=== PATIENT | male | born 1960 | race Caucasian/White ===

== ENCOUNTER 2021-05-12 17:16 | Inpatient (IN) | payer OTHER ==
[~2021-05-12] VITALS: Ht 188 cm; Wt 104.3 kg
[2021-05-12 17:22] VITALS: BP 146/80
[2021-05-12] MEDS ORDERED: NOHOMEMEDICATIONS (17:29)
[2021-05-12 18:00] LABS: URINE BLOOD 1+ (Negative); URINE CLARITY CLEAR; URINE COLOR YELLOW; URINE GLUCOSE-RANDOM NEGATIVE (Negative); URINE KETONES 2+ (Negative); URINE LEUKOCYTES-REFLEX NEGATIVE (Negative); URINE NITRITE-REFLEX NEGATIVE (Negative); URINE PROTEIN 3+ (Negative); URINE SPECIFIC GRAVITY 1.025 (1.005-1.030)
[2021-05-12 18:12] LABS: ABSOLUTE MONOCYTES 0.5 thou/uL (0.0-1.2); ABSOLUTE NEUTROPHILS 5.6 thou/uL (1.6-8.1); BASOPHILS 0.2 %; HEMATOCRIT 42.4 % (42.0-52.0); LYMPHOCYTES 13.6 %; MCH 32.8 pg (26.0-34.0); MCHC 35.4 g/dL (28.0-37.0); MCV 92.7 fL (80.0-100.0); MONOCYTES 6.6 %; MPV 7.5 fl. (7.2-11.1); NUCLEATED RBCS 0 /100WBC; PLATELET COUNT* 246 thou/uL (150-400); POLYS 79.6 %; RBC 4.58 mil/uL (4.50-6.00); WBC 7.1 thou/uL (4.0-11.0)
[2021-05-12 18:22] LABS: CALCIUM 7.8 mg/dL (8.5-10.1); CREATININE 0.9 mg/dL (0.6-1.3); POTASSIUM 3.6 mmol/L (3.5-5.1)
[2021-05-12 18:27] LABS: URINE BILIRUBIN 1+ (Negative)
[2021-05-12 18:28] LABS: ICTOTEST (BILI CONFIRMATORY) Negative (Negative)
[2021-05-12 18:35] LABS: ALBUMIN 2.9 g/dL (3.4-5.0); MAGNESIUM 1.9 mg/dL (1.8-2.4); TOTAL BILIRUBIN 1.4 mg/dL (<0.1-1.0); TOTAL PROTEIN 6.3 g/dL (6.4-8.2)
[2021-05-12 18:36] LABS: MUCUS 4-6 Moderate strn/LPF (None Seen); SQUAMOUS 0-3 Few /LPF (0-3)
[2021-05-12 18:38] LABS: CASTS None Seen /LPF (None Seen); CRYSTALS None Seen /LPF (None Seen); URINE RBC 0-2 Rare /HPF (0-2); URINE WBC-REFLEX >25 Many /HPF (0-5)
[2021-05-12 18:39] LABS: INFLUENZA A ANTIGEN Negative (Negative); INFLUENZA B ANTIGEN Negative (Negative)
[2021-05-12 20:34] VITALS: BP 95/76
[2021-05-12 21:27] VITALS: BP 128/71
--- NOTE | 2021-05-13 00:29 | NUR ---
ASSUMED CARE OF PT FROM THE ER AT 2124. PT IS ALERT AND ORIENTED. VSS. PERRLA. PT IS IN SINUS RYTHM ON THE TELEMETRY. PT IS RESTING COMFORTABLY IN BED. RESPIRATIONS ARE EVEN AND NONLABORED. WILL CONTINUE TO MONITOR PT.
[2021-05-13 02:23] VITALS: BP 112/73
[2021-05-13 05:26] VITALS: BP 108/74
[2021-05-13 08:00] VITALS: BP 111/70
--- NOTE | 2021-05-13 11:39 | EKG ---
[place] [address] ELECTROCARDIOGRAM REPORT Name: YOSELIN VIVAS Room: [address] IN [facility]#: [id number] Admission: 05/12/21 Attend Phys: David Cheatham Discharge: Date of : 58 Date of Service: 05/12/21 1745 Report #: [id number] THIS REPORT FOR: //name// [facility] ED Test Date: 2021-05-12 Test Time: 17:45:23 Pat Name: YOSELIN VIVAS Department: Room: [facility] Gender: M Property Maintenance Supervisor: ABI : 1960 Requested By: Shantanu Juárez Order Number: [id number] MD: Abel Martínez Measurements Intervals [place] Rate: 86 P: 33 DE: 123 QRS: 63 QRSD: 99 T: 25 QT: 361 QTc: 432 Interpretive Statements Sinus rhythm No previous ECG available for comparison Electronically Signed On 05-13-2021 11:39:40 CDT by Abel Martínez [email or web address] <ELECTRONICALLY SIGNED> By: Abel Martínez MD, [facility] 05/13/21 1139 1745 1745 Abel Martínez MD, [facility] /EPI
[2021-05-13 12:00] VITALS: BP 124/74
[2021-05-13 16:00] VITALS: BP 130/79
--- NOTE | 2021-05-13 16:22 | NUR ---
CM ASSESSMENT: PT COVID POSITIVE AND CURRENTLY UNDER ENHANCED PRECAUTIONS. PT A&O, NORMALLY INDEPENDENT WITH ADL'S, ACTIVE AND WORKS OUTSIDE THE HOME. PT RESIDES AT HOME WITH SPOUSE. PT USES 0 DME. PT HAS 0 HX OF HH OR SNF. CM WILL REMAIN AVAILABLE TO ASSIST AND FOLLOW NEEDED. PT NOT CURRENTLY ON ANY OXYGEN. CM D/C PLANNING NEEDS TBD AT THIS TIME. CM WILL REMAIN AVAILABLE TO ASSIST AND FOLLOW NEEDED.
--- NOTE | 2021-05-13 16:25 | NUR ---
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 REMAINS ON ROOM AIR 02 SAT IN LOW 90'S. NO COMPLAINTS OF PAIN, DIZZINESS OR INCREASE SOA TO NURSING. WILL CONTINUE WITH PLAN OF CARE.
[2021-05-13 20:00] VITALS: BP 126/77
--- NOTE | 2021-05-13 20:00 | NUR ---
RECEIVED REPORT AND ASSUMED CARE OF PT, ASSESSMENT COMPLETED. PT RESTING IN BED. DENIES SOA OR WEAKNESS. O2 SAT 91%, NO COUGH NOTED. TELEMETRY ON BUT WILL BE REMOVED ORDERED MED/SURG, SHOWS NSR. WILL CONT TO MONITOR AND ASSIST NEEDED.
[2021-05-14 04:00] VITALS: BP 141/73
[2021-05-14 04:27] LABS: HEMATOCRIT 39.8 % (42.0-52.0); HEMOGLOBIN 14.2 gm/dL (14.0-18.0); MCH 32.8 pg (26.0-34.0); MCHC 35.8 g/dL (28.0-37.0); MCV 91.7 fL (80.0-100.0); MPV 7.9 fl. (7.2-11.1); NUCLEATED RBCS 0 /100WBC; PLATELET COUNT* 301 thou/uL (150-400); RBC 4.34 mil/uL (4.50-6.00); RDW-CV 16.6 % (10.5-14.5); WBC 11.9 thou/uL (4.0-11.0)
[2021-05-14 04:41] LABS: CALCIUM 7.5 mg/dL (8.5-10.1); CREATININE 0.7 mg/dL (0.6-1.3); POTASSIUM 3.7 mmol/L (3.5-5.1)
[2021-05-14 06:16] LABS: ABSOLUTE LYMPHOCYTES 1.1 thou/uL (0.8-5.3); ABSOLUTE MONOCYTES 0.2 thou/uL (0.0-1.2); ABSOLUTE NEUTROPHILS 10.6 thou/uL (1.6-8.1); PLATELET ESTIMATE ADEQUATE
--- NOTE | 2021-05-14 07:37 | NUR ---
AWAKE MOST OF NIGHT, MELATONIN GIVEN PER PT REQUEST. CONT TO BE UPSET ABOUT NOT RECEIVING ANSWERS TO BILLING QUESTIONS, REASSURANCE GIVEN AND INFORMED CASE MANAGEMENT. PT O2 SAT 88% WHEN AT REST, O2 APPLIED AT 2L/NC. PT UPSET WITH THIS ALSO, EXTENSION APPLIED. PT REQUESTED BSC AND URINAL, STATES UNABLE TO GO INTO BR WITH IV CONNECTED. NO CHANGE IN ASSESSMENT. HS GOALS OF REST AND SAFETY PARTICALLY ACHIEVED. HOURLY ROUNDING OBSERVED. REMAINS IN COVID ISOLATION.
[2021-05-14 08:20] VITALS: BP 154/64
[2021-05-14] MEDS ORDERED: DEXAMETHASONE6 MG PO (10:24)
[2021-05-14] MEDS ORDERED: CEFDINIR300 MG PO (10:24)
[2021-05-14 12:35] VITALS: BP 151/90
--- NOTE | 2021-05-14 14:26 | NUR ---
PLAN OF CARE: PHYSICIAN INFORMS OF PLAN FOR THE PT TO D/C HOME TODAY WITH SELF-CARE. R.T. INFORMS THAT THE PT WILL NOT NEED HOME OXYGEN AT D/C. NO OTHER CM D/C PLANNING NEEDS. CM WILL REMAIN AVAILABLE TO ASSIST AND FOLLOW NEEDED.
[2021-05-14 15:39] VITALS: BP 151/90
== END 2021-05-14 16:00 | disposition home or self-care (01) | DRG 177 ==
LOC: M.ERS 17:16 → M.TBA-ER 18:30 → M.2W 18:30
PROVIDERS: Nurse Practitioner Psychiatric/Mental Health; ADMIT Internal Medicine; ATTEND Internal Medicine
PROC: 05HF33Z Insertion of Infusion Device into Left Cephalic Vein, Percutaneous Approach (ICD-10-PCS; principal; 2021-05-13)
DX: U07.1 COVID-19 (principal); J12.82 Pneumonia due to coronavirus disease 2019; J15.6 Pneumonia due to other Gram-negative bacteria; E87.1 Hypo-osmolality and hyponatremia; E44.1 Mild protein-calorie malnutrition; E86.0 Dehydration; Z68.29 Body mass index [BMI] 29.0-29.9, adult; Z86.010 Personal history of colon polyps